=== PATIENT | male | born 1950 | race Caucasian/White ===

== ENCOUNTER 2018-06-26 12:01 | Emergency (ER) | payer OTHER ==
[~2018-06-26 12:01] MED LIST: ASPI-555 PO; GABA-531 PO; IBUP-2070 PO; LISI-613 PO; METF-444 PO; PRAV20TA4 PO
[2018-06-26] MEDS ORDERED: LIDOCAINE 5% TOPICAL PATCH TP ONE (12:40)
[2018-06-26] MEDS ORDERED: DIAZEPAM 5 MG TABLET ONE (12:40)
[2018-06-26] MEDS ORDERED: KETOROLAC TROMETHAMINE 30MG/ML ONE (12:40)
== END 2018-06-26 13:38 | disposition home or self-care (01) ==
LOC: EDH 12:01
DX: M62.838 Other muscle spasm (principal); M54.2 Cervicalgia; I10 Essential (primary) hypertension; E11.9 Type 2 diabetes mellitus without complications; E78.5 Hyperlipidemia, unspecified; Z98.890 Other specified postprocedural states
CPT/HCPCS: 96372; 99283; J1885

== ENCOUNTER → 2018-07-30 | Outpatient (CLI) | payer OTHER | END | disposition home or self-care (01) | LOC: RAH 15:06 | PROVIDERS: ATTEND Internal Medicine | DX: R06.02 Shortness of breath (principal); Z77.22 Contact with and (suspected) exposure to environmental tobacco smoke (acute) (chronic) | CPT/HCPCS: 71046 ==

== ENCOUNTER → 2019-03-24 | Outpatient (CLI) | payer OTHER ==
[~2019-03-24] VITALS: Ht 182.9 cm; Wt 106.6 kg
[~2019-03-24] MED LIST changes: +REGADENOSON 0.4 MG/5 ML PF SYG IVP SCH
== END | disposition home or self-care (01) ==
LOC: SHCH 08:44
PROVIDERS: ATTEND Internal Medicine Cardiovascular Disease
DX: I25.119 Atherosclerotic heart disease of native coronary artery with unspecified angina pectoris (principal)
CPT/HCPCS: 78452; 93017; 96374; A9500 ×2; J2785

== ENCOUNTER 2019-08-13 17:02 | Emergency (ER) | payer OTHER ==
[~2019-08-13 17:02] MED LIST changes: -REGADENOSON 0.4 MG/5 ML PF SYG IVP SCH
[2019-08-13] MEDS ORDERED: ONDANSETRON HCL 4 MG/2 ML VIAL ONE (17:15)
[2019-08-13] MEDS ORDERED: MORPHINE SULFATE 4 MG/1ML SYG ONE ×2 (17:15→18:10)
[2019-08-13] MEDS ORDERED: SODIUM CHLORIDE 0.9% 1000ML 1,000 ML IV ONE (17:16)
[2019-08-13] MEDS ORDERED: DiphenhydrAMINE HCL 50 MG/ML VIAL ONE (17:24)
[2019-08-13] MEDS ORDERED: FAMOTIDINE/PF 20 MG/2 ML VIAL IV ONE (17:24)
[2019-08-13 17:25] LABS: BASOPHILS % (AUTO) 0.6 % (0.0-5.0); EOSINOPHILS % (AUTO) 3.2 % (0.0-8.0); HEMATOCRIT 41.3 % (42-54); LYMPHOCYTES % (AUTO) 31.1 % (21.0-51.0); MEAN CORPUSCULAR HEMOGLOBIN 30.4 pg (27.0-33.0); MEAN CORPUSCULAR HGB CONC 33.2 g/dL (32.0-36.0); MEAN CORPUSCULAR VOLUME 91.6 fL (79-99); MONOCYTES % (AUTO) 11.7 % (3.0-13.0); NEUTROPHILS % (AUTO) 53.1 % (40.0-77.0); PLATELET COUNT (AUTO) 220 K/uL (130-400); RED BLOOD CELL COUNT(AUTO) 4.51 MIL/uL (4.50-6.20); WHITE BLOOD COUNT (AUTO) 6.3 K/uL (4.8-10.8)
[2019-08-13 17:39] LABS: CREATININE 1.2 mg/dL (0.5-1.5); POTASSIUM 3.7 mmol/L (3.5-5.1)
[2019-08-13 17:43] LABS: ALBUMIN 3.7 g/dL (3.5-5.0); BILIRUBIN,TOTAL 1.2 mg/dL (0.2-1.0); TOTAL PROTEIN, SERUM 7.2 g/dL (6.0-8.3)
[2019-08-13] MEDS ORDERED: KETOROLAC TROMETHAMINE 30MG/ML ONE (18:25)
== END 2019-08-13 19:46 | disposition home or self-care (01) ==
LOC: EDH 17:02
DX: S60.222A Contusion of left hand, initial encounter (principal); S60.221A Contusion of right hand, initial encounter; S00.81XA Abrasion of other part of head, initial encounter; I10 Essential (primary) hypertension; E11.9 Type 2 diabetes mellitus without complications; E78.5 Hyperlipidemia, unspecified; Z87.442 Personal history of urinary calculi; W18.39XA Other fall on same level, initial encounter; Y93.01 Activity, walking, marching and hiking; Y92.89 Other specified places as the place of occurrence of the external cause; Y99.8 Other external cause status
CPT/HCPCS: 36415; 70450; 71045; 72125; 72170; 73130 ×2; 80053; 82550; 82948; 84484; 85025; 93005; 96374; 96375; 96376; 99285; J1200; J1885; J2270 ×2; J2405; J3490; J7030

== ENCOUNTER 2019-08-14 16:49 | Emergency (ER) | payer OTHER ==
[2019-08-14] MEDS ORDERED: ACETAMINOPHEN 325 MG TAB ONE (17:25)
== END 2019-08-14 19:01 | disposition home or self-care (01) ==
LOC: EDH 16:49
DX: S63.92XA Sprain of unspecified part of left wrist and hand, initial encounter (principal); S66.912A Strain of unspecified muscle, fascia and tendon at wrist and hand level, left hand, initial encounter; I10 Essential (primary) hypertension; E78.5 Hyperlipidemia, unspecified; E11.9 Type 2 diabetes mellitus without complications; Z87.442 Personal history of urinary calculi; Z98.890 Other specified postprocedural states; X58.XXXA Exposure to other specified factors, initial encounter; Y93.89 Activity, other specified; Y92.89 Other specified places as the place of occurrence of the external cause; Y99.8 Other external cause status

== ENCOUNTER → 2020-06-21 | Outpatient (CLI) | payer OTHER ==
[~2020-06-21] MED LIST changes: -ASPI-555 PO; +ASPI-556 PO; +IOHEXOL-350 50ML VIAL IV ONE
== END | disposition home or self-care (01) ==
LOC: RAH 13:44
PROVIDERS: ATTEND Otolaryngology
DX: C32.9 Malignant neoplasm of larynx, unspecified (principal); J39.2 Other diseases of pharynx; M79.89 Other specified soft tissue disorders
CPT/HCPCS: 70491; Q9967

== ENCOUNTER → 2020-08-22 | Outpatient (CLI) | payer OTHER ==
[~2020-08-22] MED LIST changes: -IOHEXOL-350 50ML VIAL IV ONE; -LISI-613 PO; +LISI20TA24 PO
== END | disposition home or self-care (01) ==
LOC: RAH 10:20
PROVIDERS: ATTEND Otolaryngology
DX: C32.9 Malignant neoplasm of larynx, unspecified (principal); R13.12 Dysphagia, oropharyngeal phase; R13.13 Dysphagia, pharyngeal phase
CPT/HCPCS: 74230; 92611

== ENCOUNTER 2021-01-17 18:38 | Emergency (ER) | payer OTHER ==
[~2021-01-17] VITALS: Ht 180.3 cm; Wt 106.6 kg
[2021-01-17 18:42] VITALS: BP 147/76
[2021-01-17] MEDS ORDERED: SILVER SULFADIAZINE CREAM 50 GM TP ONE (20:11)
[2021-01-17] MEDS ORDERED: SILV20CR11 TP (20:11)
[2021-01-17] MEDS ORDERED: ACETAMINOPHEN 500 MG TABLET PO ONE (20:30)
[2021-01-17] MEDS ORDERED: SILVER SULFADIAZINE CREAM 400 GM TP SCH (21:00)
[2021-01-17 21:04] VITALS: BP 132/76
== END 2021-01-17 21:06 | disposition home or self-care (01) ==
LOC: EDH 18:38
DX: T23.102A Burn of first degree of left hand, unspecified site, initial encounter (principal); T31.0 Burns involving less than 10% of body surface; I10 Essential (primary) hypertension; E10.9 Type 1 diabetes mellitus without complications; E78.00 Pure hypercholesterolemia, unspecified; Z79.82 Long term (current) use of aspirin; Z79.84 Long term (current) use of oral hypoglycemic drugs; Z79.899 Other long term (current) drug therapy; X08.8XXA Exposure to other specified smoke, fire and flames, initial encounter; Y93.89 Activity, other specified; Y92.89 Other specified places as the place of occurrence of the external cause; Y99.8 Other external cause status
CPT/HCPCS: 16000

== ENCOUNTER → 2022-01-15 | Outpatient (CLI) | payer OTHER ==
[~2022-01-15] MED LIST changes: +SILV20CR11 TP
== END | disposition home or self-care (01) ==
LOC: SHCH 12:50
PROVIDERS: ATTEND Internal Medicine Cardiovascular Disease
DX: I70.203 Unspecified atherosclerosis of native arteries of extremities, bilateral legs (principal); M79.652 Pain in left thigh; M25.561 Pain in right knee
CPT/HCPCS: 93925

== ENCOUNTER → 2024-01-22 | Outpatient (CLI) | payer OTHER ==
[2024-01-22] MEDS: REGADENOSON 0.4 MG/5 ML PF SYG IVP ONE (15:02)
== END | disposition home or self-care (01) ==
LOC: SHCH 08:43
PROVIDERS: ATTEND Internal Medicine Cardiovascular Disease
DX: I25.10 Atherosclerotic heart disease of native coronary artery without angina pectoris (principal); R07.9 Chest pain, unspecified
CPT/HCPCS: 78452; 96374; 93017; J2785; A9500 ×2

== ENCOUNTER → 2024-06-16 | Outpatient (CLI) | payer OTHER ==
[~2024-06-16] MED LIST changes: +AEC81 PO; -ASPI-556 PO; +ATOR10TA69 PO; +GABA-529 PO; -GABA-531 PO; -IBUP-2070 PO; -LISI20TA24 PO; +LOSA50TA64 PO; +PANT40TA54 PO; -PRAV20TA4 PO; -SILV20CR11 TP
--- NOTE | 2024-06-16 12:29 | HMCIMG ---
US THYROID/NECK REASON: PERSONAL HX MALIGNANT NEOPLASM COMPARISON: None TECHNIQUE: Routine thyroid sonogram was performed. There are no prior studies for comparison. FINDINGS: There is inhomogeneous appearing thyroid parenchyma. Both lobes are prominent, findings consistent with possible goiter. Right lobe is 4.4 x 1.8 x 1.9 cm, left 4.9 x 2.3 x 2.0 cm. Right lobe shows 2 hypoechoic nodules both in the lower pole, largest is 9 x 12 mm. The second nodule is 9 x 10 mm. These each of the thyroid T score of 4, moderately suspicious, the recommendation is for biopsy of greater than 1.5 cm or annular sonographic follow-up is equal to or greater than 1 cm. Left lobe shows a hypoechoic nodule in the lower pole measuring 1.8 x 2.3 cm. This is well-circumscribed without visible calcification. There is marked 2 9 mm nodules in the upper pole along with an 8 mm cyst. The dominant nodule lower pole has a thyroid T score of 4, moderately suspicious, biopsy recommended greater than 1.5 cm. IMPRESSION: 1. Dominant nodule lower pole left lobe of the thyroid, 1.8 x 2.3 cm, fine-needle aspiration biopsy recommended due to size and appearance. 2. 2 smaller nodules on the right as well as 2 additional smaller nodules on the left, all have thyroid T score of 4, sonographic follow-up. 1 cm or greater, ultrasound-guided biopsy if a greater than 1.5, sonographic follow-up therefore recommended for these nodules.
== END | disposition home or self-care (01) ==
LOC: RAH 11:15
PROVIDERS: ATTEND Internal Medicine
DX: E04.2 Nontoxic multinodular goiter (principal); Z85.21 Personal history of malignant neoplasm of larynx
CPT/HCPCS: 76536

== ENCOUNTER → 2024-07-19 | Outpatient (CLI) | payer OTHER ==
[2024-07-19 08:43] LABS: INR 1.02 (0.85-1.15); PROTHROMBIN TIME 11.4 SEC (9.6-11.6)
[2024-07-19 08:45] LABS: PARTIAL THROMBOPLASTIN TIME 27.2 SEC (26.3-35.5)
--- NOTE | 2024-07-19 09:30 | NUR ---
U/S GD LT THYROID NODULE FNA TOLERATED PROCEDURE. PERFORMED BY DR César BATEMAN. PUNCTURE SITE TO LT NECK. X4 ASPIRATIONS COLLECTED BY [employer] AT BEDSIDE. END OF PROCEDURE AT 0910. DRESSING APPLIED. NO BLEEDING NOTED. DISCHARGE INSTRUCTIONS GIVEN. VERBALIZED UNDERSTANDING. DISCHARGE VIA AMBULATORY. DENIES PAIN. A&O.
--- NOTE | 2024-07-19 12:36 | HMCIMG ---
US GUIDANCE NDL [facility] IR REASON: LT THYROID NODULE 1.8 CM COMPARISON: Thyroid sonogram at 06/16/2024 TECHNIQUE: Procedure was discussed with the patient. Left lobe thyroid mass was identified on preprocedure guidance and overlying skin prepped and draped in a sterile fashion. 1% Xylocaine infiltration was performed. A total of 4 27-gauge fine-needle aspiration biopsy samples were obtained. Pathology lead generation representative deemed to the samples to be adequate. Procedure was therefore concluded. Patient expressed no evidence of complication during the procedure. IMPRESSION: 1. Ultrasound-guided fine-needle aspiration of left lobe thyroid nodule 3 27-gauge needles x4.
== END | disposition home or self-care (01) ==
LOC: RAH 07:38
PROVIDERS: ATTEND Internal Medicine
DX: E04.1 Nontoxic single thyroid nodule (principal); E11.9 Type 2 diabetes mellitus without complications; E78.5 Hyperlipidemia, unspecified; E66.9 Obesity, unspecified; I10 Essential (primary) hypertension; Z79.82 Long term (current) use of aspirin; Z79.899 Other long term (current) drug therapy; Z68.31 Body mass index [BMI] 31.0-31.9, adult; Z98.890 Other specified postprocedural states; Z79.01 Long term (current) use of anticoagulants; Z98.41 Cataract extraction status, right eye; Z85.21 Personal history of malignant neoplasm of larynx
CPT/HCPCS: 10005; 36415; 76942; 85610; 85730; 88172; 88173; 88177; 88305

== ENCOUNTER 2024-08-12 05:42 | Day surgery (SDC) | payer OTHER ==
--- NOTE | 2024-08-10 08:27 | EKG ---
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
[2024-08-10 09:16] VITALS: BP 163/74; PULSE 71; RESP 18; TEMP 98.1
[2024-08-10 09:16] LABS: BASOPHILS # (AUTO) 0.05 K/uL (0.00-0.20); BASOPHILS % (AUTO) 0.9 % (0.0-5.0); EOSINOPHILS # (AUTO) 0.16 K/uL (0.00-0.70); EOSINOPHILS % (AUTO) 2.8 % (0.0-8.0); HEMATOCRIT 39.6 % (42-54); IMMATURE GRANULOCYTE ABSOLUTE 0.03 K/uL (0-1); LYMPHOCYTES % (AUTO) 17.9 % (21.0-51.0); MEAN CORPUSCULAR HEMOGLOBIN 30.8 pg (27.0-33.0); MEAN CORPUSCULAR HGB CONC 32.3 g/dL (32.0-36.0); MEAN CORPUSCULAR VOLUME 95.4 fL (79-99); MONOCYTES # (AUTO) 0.8 K/uL (0.1-1.0); MONOCYTES % (AUTO) 13.9 % (3.0-13.0); NEUTROPHILS # (AUTO) 3.7 K/uL (1.8-7.7); PLATELET COUNT (AUTO) 200 K/uL (130-400); RED BLOOD CELL COUNT(AUTO) 4.15 MIL/uL (4.50-6.20); RED CELL DISTRIBUTION WIDTH 13.5 % (11.0-15.5); WHITE BLOOD COUNT (AUTO) 5.7 K/uL (4.8-10.8)
[2024-08-10 09:29] LABS: CREATININE 1.3 mg/dL (0.5-1.3); POTASSIUM 4.3 mmol/L (3.5-5.1)
[2024-08-10 09:30] LABS: APPEARANCE,URINE CLEAR (CLEAR); BILIRUBIN,URINE NEGATIVE (NEGATIVE); COLOR,URINE LIGHT-YELLOW (YELLOW); GLUCOSE, URINE (UA) NEGATIVE (NEGATIVE); KETONES,URINE NEGATIVE (NEGATIVE); LEUKOCYTE ESTERASE ,URINE NEGATIVE Leu/uL (NEGATIVE); NITRATE,URINE NEGATIVE (NEGATIVE); PH,URINE 5.5 (5.0-8.0); PROTEIN,URINE 20 mg/dL (NEGATIVE); UROBILINOGEN,URINE 0.2 mg/dL (0.2-1.0)
--- NOTE | 2024-08-10 09:31 | HMCIMG ---
Exam Type: CHEST 1VW Clinical Information: PREOP Comparison: None Findings: The lungs are clear of infiltrates. The heart is normal in size. The bony and soft tissue structures of the chest are unremarkable. Impression: Clear lungs.
[2024-08-10 09:41] LABS: B-TYPE NATRIURETIC PEPTIDE 100 pg/mL (0-100)
[2024-08-10 09:51] LABS: ADD UA MICROSCOPIC YES
[2024-08-10 09:53] LABS: BACTERIA,URINE RARE /HPF (None Seen); MUCUS,URINE RARE LPF (None Seen); SQUAMOUS EPITHELIAL CELL,UR RARE /HPF (0-2)
[2024-08-10 10:12] LABS: PARTIAL THROMBOPLASTIN TIME 29.3 SEC (26.3-35.5)
[2024-08-10 10:37] LABS: INR 1.04 (0.85-1.15); PROTHROMBIN TIME 11.6 SEC (9.6-11.6)
--- NOTE | 2024-08-10 11:13 | NUR ---
REPORT REPORTED PT HELD ELIZA 3 DAYS TO SONIA SERRA NP. ALSO PT HAS RASH TO DEBBIE GROINS. OK TO PROCEED AND TO INSTRUCT PT TO USE ANTIBACTERIAL SOAP ON GROIN AREA AND DRY WELL Addendum: 08/10/24 at 1116 by SANTIAGO REYES RN RN PT NOTIFIED
--- NOTE | 2024-08-11 09:39 | NUR ---
REPORT REPORTED BMP AND UA TO SONIA SERRA NP. ALSO INFORMED URINE CX PENDING. OK TO PROCEED
[2024-08-12] VITALS (11 sets, daily range): BP systolic 137–171; BP diastolic 78–90; PULSE 54–76; RESP 10–18; TEMP 97.2–97.9
[~2024-08-12] VITALS: Ht 180.3 cm; Wt 104.6 kg
[~2024-08-12 05:42] MED LIST changes: -AEC81 PO; +APIX5TAB PO; -GABA-529 PO; +ISOS60TA77 PO; +NITR0.4T50 SL; +OFLO35OS OD; +PREDAOS OD
[2024-08-12] MEDS: 0.9%NACL 1000ML 1,000 ML IV SCH (06:44)
[2024-08-12] MEDS ORDERED: IOHEXOL 350 MG/ML 100ML INFUS..BTL IV ONE ×2 (07:04→08:32)
[2024-08-12] MEDS ORDERED: NITROGLYCERIN 50MG VIAL ONE (07:04)
[2024-08-12] MEDS ORDERED: LIDOCAINE HCL 400MG/20ML VIAL ONE (07:04)
[2024-08-12] MEDS ORDERED: HEParin-NS 1,000 UNIT/500 ML 1,000 ML IV ONE (07:04)
[2024-08-12] MEDS ORDERED: FENTanyl CITRate PF 50 MCG/1 ML 2ML VIAL ONE (07:26)
[2024-08-12] MEDS ORDERED: MIDAZOLAM HCL 1 MG/ML 2ML VIAL ONE (07:27)
[2024-08-12] MEDS ORDERED: ASPIRIN 325MG EC TAB PO ONE (08:05)
[2024-08-12] MEDS ORDERED: cloPIDOgrel 300MG TAB ONE (08:05)
[2024-08-12] MEDS ORDERED: BIVALIRUDIN 250 MG/VIAL IV ONE ×2 (08:05→08:33)
[2024-08-12] MEDS ORDERED: ondanSETRON 4MG INJ ONE (09:22)
[2024-08-12] MEDS ORDERED: ondanSETRON 4MG INJ IVP PRN (09:30)
[2024-08-12] MEDS ORDERED: acetaMINOPHEN WITH coDEINE 1 TAB TAB PO PRN ×2 (09:30)
[2024-08-12] MEDS ORDERED: 0.9%NACL 1000ML 1,000 ML IV SCH (09:30)
--- NOTE | 2024-08-12 09:45 | NUR ---
URINARY: VOIDED 450 CLEAR YELLOW URINE PER URINAL WITHOUT DIFFICULTY.
--- NOTE | 2024-08-12 10:00 | PRN ---
DATE OF PROCEDURE: 08/12/2024 PROCEDURE PERFORMED: LEFT HEART CATHETERIZATION, LEFT AND RIGHT SELECTIVE CORONARY ANGIOGRAM, PTCA AND DONITA PLACEMENT IN THE DISTAL LAD WITH A 2.75 X 26 [employer]IC JARETH FRONTIER, AND PTCA AND STENTING OF THE APICAL LAD WITH A 2.0 X 30 MM JARETH FRONTIER DONITA, RIGHT COMMON FEMORAL ANGIOGRAM, AND PERCLOSE SUTURE CLOSURE OF THE RIGHT COMMON FEMORAL ARTERY COMPOUND FILLER: ZAFAR PANDA MD, [facility] INDICATION: BASAL INFERIOR ISCHEMIA ON LEXISCAN CARDIOLITE STRESS TEST 01/22/2024 WITH GATED EF OF 60%; RECURRENT SYNCOPAL EPISODES 05/01/2024 AND 06/04/2024 PROCEDURE NOTE: After informed consent was obtained the patient was prepped and draped in the usual sterile fashion. A 6 Samoan arterial sheath was inserted in the right femoral artery using micropuncture technique with ultrasound guidance with a front wall puncture. This was performed after fluoroscopic identification of bony landmarks to facilitate a more accurate puncture of the right common femoral artery. The arterial sheath was aspirated and flushed. A 6 Samoan pigtail catheter was then advanced over a J-tipped guidewire to the ascending aorta and was prolapsed into the left ventricle. The catheter was aspirated and flushed and pressure measurements were obtained. No LV gram was performed due to the presence of chronic renal insufficiency. A pullback procedure was then performed, and this catheter was removed over a J-tipped guidewire. A 6F JL-4 was then advanced to the ascending aorta over a J-tipped guidewire, was aspirated and flushed, and was used for selective left coronary angiograms in multiple obliquities. A JR-4 was advanced in a similar fashion to the ascending aorta over a J-tipped guidewire and was used for selective right coronary angiograms in multiple obliquities with findings as outlined below. PERCUTANEOUS CORONARY INTERVENTION: A six Samoan JL4 guiding catheter and a 300 cm 0.014 in BMW wire was used for the intervention and provided adequate support. The 2.0 x 20 and see you for w as used to pre dilate the apical LAD and a 2.75 x 20 mm NC Euphora was used to pre dilate to high pressure the calcific mid LAD with excellent expansion. A 2.75 x 26 mm jareth Pettis DONITA was deployed in the mid LAD to high pressure 16 atmospheres with excellent stent expansion to 0% residual. A 2.0 x 30 mm jareth Pettis DONITA was deployed in the apical LAD to 14 atmospheres reducing 95% stenosis to 0% residual. Final results were excellent with no edge dissection or perforation. A right common femoral angiogram was performed to assess suitability for Perclose suture closure and the Perclose device was deployed in standard fashion. Perclose suture closure was successful without bleeding or hematoma. The patient tolerated the procedure well and was returned to the holding area in stable condition. FINDINGS: LEFT HEART HEMODYNAMICS THE PATIENT'S LVEDP WAS 18 MM HG PRIOR TO LV GRAM IN 19 MM HG AFTER LV GRAM. THERE WAS NO AORTIC VALVE GRADIENT ON PULLBACK. LEFT VENTRICULOGRAM: Not performed due to chronic renal insufficiency. CORONARY ANGIOGRAM: LEFT MAIN: The left main was normal and there was no dampening or ventricularization of the pressure waveforms. LEFT ANTERIOR DESCENDING: The LAD was calcific throughout the proximal and mid segments. There was a 30% proximal LAD stenosis and 60% distal LAD stenosis. There was an 85% distal LAD stenosis and a tandem 80% +95% apical LAD stenosis. The diagonal branches were normal. LEFT CIRCUMFLEX: The left circumflex was nondominant and had a 40% proximal and 50% mid stenosis. The OM-1 was normal and there was a 30% stenosis in the OM-2. RAMUS INTERMEDIATE BRANCH: There was no ramus intermediate branch. RIGHT CORONARY ARTERY: The right coronary artery was dominant and had a 40% proximal stenosis, 30% mid stenosis, and 30% distal LAD stenosis. The PDA and posterolateral branches were normal. IMPRESSION: Inferobasal ischemia on Lexiscan Cardiolite stress test this gated EF of 60% 01/22/2024 Severe distal and apical LAD disease with 85% mid to distal stenosis in 80 and 95% tandem apical LAD stenoses. Nonobstructive disease in the left circumflex (50% mid), nonobstructive disease in the RCA (40% proximal, 30% mid, and 30% distal). Successful PTCA and DONITA placement of the mid to distal LAD with a 2.75 x 26 mm Jareth Pettis DONITA Successful PTCA and DONITA placement of the apical LAD with a 2.0 x 30 mm [place] Pettis DONITA RECOMMENDATION: Dual antiplatelet therapy for six months given Eliquis anticoagulation Identify reason for Eliquis anticoagulation Risk factor modification to target LDL of 55 (type 2 diabetes mellitus) COMPLICATIONS OF PROCEDURE: None, the patient tolerated the procedure well and was returned to his room in stable condition. HEMOSTASIS: Perclose suture closest successful without bleeding or hematoma. ESTIMATED BLOOD LOSS: 10 mL. CONTRAST TOTAL: 205 mL ZAFAR PANDA MD Aug 12, 2024 10:00
--- NOTE | 2024-08-12 13:23 | HMCIMG ---
Exam Type: US VENOUS DOPPLER BILATERAL Clinical Information: RULE OUT DVT Comparison: None Findings: The examination shows nonocclusive thrombosis of the left popliteal vein. The rest of the venous structures evaluated shows no evidence of thrombosis. IMPRESSION: Thrombus as noted.
--- NOTE | 2024-08-12 14:05 | NUR ---
consult: dr. mojica made aware of doppler results from 05/29 and 08/12. orders given to remain on eliquis but to start on thursday. to instruct patient to walk daily at home.
== END 2024-08-12 15:15 | disposition home or self-care (01) ==
LOC: DAH 05:42
PROVIDERS: ATTEND Internal Medicine Cardiovascular Disease
DX: R94.39 Abnormal result of other cardiovascular function study (principal); R55 Syncope and collapse; I47.20 Ventricular tachycardia, unspecified; I25.84 Coronary atherosclerosis due to calcified coronary lesion; I25.118 Atherosclerotic heart disease of native coronary artery with other forms of angina pectoris; I82.432 Acute embolism and thrombosis of left popliteal vein; E78.5 Hyperlipidemia, unspecified; G47.30 Sleep apnea, unspecified; R06.09 Other forms of dyspnea; I13.0 Hypertensive heart and chronic kidney disease with heart failure and stage 1 through stage 4 chronic kidney disease, or unspecified chronic kidney disease; I50.30 Unspecified diastolic (congestive) heart failure; E11.22 Type 2 diabetes mellitus with diabetic chronic kidney disease; N18.9 Chronic kidney disease, unspecified; E66.9 Obesity, unspecified; R53.82 Chronic fatigue, unspecified; Z98.890 Other specified postprocedural states; Z79.82 Long term (current) use of aspirin; Z82.3 Family history of stroke; Z79.899 Other long term (current) drug therapy; Z79.84 Long term (current) use of oral hypoglycemic drugs; Z83.3 Family history of diabetes mellitus; Z68.31 Body mass index [BMI] 31.0-31.9, adult
CPT/HCPCS: 80048; 83880; 85025; 85610; 85730; 87086; 81001; 36415; 71045; 93005; 92978; 93458; 82948 ×2; 93970; C9600; C1887; C1894 ×2; C1769; C1874 ×2; C1760; C1753; Q9965 ×2; C1725 ×2; J3010; J3490 ×2; J7030; J2250; J2405; J1644; J0583 ×2; Q9967 ×2; A4215; A4222; A4221; A4663; A4216; A4606; A4223 ×3; 96360; 96361; 99156; 99157

== ENCOUNTER → 2024-10-18 | Outpatient (CLI) | payer OTHER ==
[2024-10-18 16:24] LABS: BASOPHILS # (AUTO) 0.04 K/uL (0.00-0.20); BASOPHILS % (AUTO) 0.7 % (0.0-5.0); EOSINOPHILS # (AUTO) 0.22 K/uL (0.00-0.70); IMMATURE GRANULOCYTE ABSOLUTE 0.02 K/uL (0-1); LYMPHOCYTES % (AUTO) 17.9 % (21.0-51.0); MEAN CORPUSCULAR HEMOGLOBIN 30.7 pg (27.0-33.0); MEAN CORPUSCULAR VOLUME 95.9 fL (79-99); MONOCYTES # (AUTO) 0.7 K/uL (0.1-1.0); MONOCYTES % (AUTO) 11.9 % (3.0-13.0); NEUTROPHILS # (AUTO) 3.6 K/uL (1.8-7.7); NEUTROPHILS % (AUTO) 65.1 % (40.0-77.0); PLATELET COUNT (AUTO) 195 K/uL (130-400); RED BLOOD CELL COUNT(AUTO) 4.59 MIL/uL (4.50-6.20); RED CELL DISTRIBUTION WIDTH 13.4 % (11.0-15.5); WHITE BLOOD COUNT (AUTO) 5.5 K/uL (4.8-10.8)
[2024-10-18 16:34] LABS: ALBUMIN 3.7 g/dL (3.5-5.0); BILIRUBIN,TOTAL 1.2 mg/dL (0.2-1.0); CREATININE 1.2 mg/dL (0.5-1.3); POTASSIUM 4.9 mmol/L (3.5-5.1); TOTAL PROTEIN, SERUM 7.4 g/dL (6.0-8.3)
== END | disposition home or self-care (01) ==
LOC: LAB 11:49
PROVIDERS: ATTEND Internal Medicine Cardiovascular Disease
DX: E78.2 Mixed hyperlipidemia (principal); Z79.01 Long term (current) use of anticoagulants
CPT/HCPCS: 36415; 80053; 80061; 85025